=== PATIENT | female | born 1990 | race African-American/Black ===

== ENCOUNTER → 2016-12-03 | Outpatient (CLI) | payer OTHER ==
[~2016-12-03] MED LIST: AUGMENTIN PO
--- NOTE | ~2016-12-03 | MR103 ---
[facility]. [facility] A Service of [facility] & [facility] RADIOLOGY TEXT RESULTS PATIENT: LAI LOCATION: [facility] : 92 UNIT #: [id number] AGE: [address]: Fermín Granger MD SEX: F ORDER DR: [id number] [facility] [address] [place], [place] [address] [id number] O MR#: [id number] Acc #: [id number] NAME: October : 1990 SEX: F STUDY DATE/TIME: 12/03/2016 20:04 UNIT: [facility] ROOM: STUDY DESCRIPTION: MR Knee Wo Contrast Lt Attending Physician: Fermín Granger M.D. Referring Physician: Fermín Granger M.D. Ordering Physician: Fermín Granger M.D. Primary Care Physician: No Primary Care Physician MRI CENTER REPORT This report is preliminary unless electronic signature is present. EXAM MRI left knee 12/03/2016 COMPARISON No correlative studies. HISTORY Order states lateral meniscus tear. History sheet states left knee pain since August 2015. Pain on both sides of anterior knee. Painful flexion. Painful going up stairs. Pain during weather changes. No surgery. FINDINGS There is a mild joint effusion without a popliteal cyst. There is mild patella kristie without subluxation, tilt, or patellofemoral chondromalacia. There is, however, marked inflammation in the infrapatellar fat pad eccentric superolaterally. In this location, fat pad impingement is suggested. This is most commonly seen as sequela of patellofemoral malalignment/maltracking. The quadriceps and patellar tendons are intact. Cruciate ligaments are normal. Menisci, collateral ligaments, and popliteus tendon are intact. Articular cartilage and medial lateral compartments is normal. There is no marrow lesion, fracture, or loose body. IMPRESSION 1. Patella kristie without subluxation, tilt, or chondromalacia. 2. Marked inflammation in the superolateral aspect of the infrapatellar fat pad is most commonly seen in the setting of patellofemoral STS. [facility] A Service of [facility] & [facility] RADIOLOGY TEXT RESULTS PATIENT: LAI LOCATION: [facility] : [birth year] UNIT #: [id number] AGE: [address]: Fermín Granger MD SEX: F ORDER DR: malalignment/maltracking with fat pad impingement. Correlate clinically. 3. No meniscus tear. 4. Small effusion. Dictated by... Bree Catherine M.D. THIS IS AN ELECTRONICALLY VERIFIED REPORT Bree Catherine M.D. at 12/04/2016 11:31 AM HELEN/juana TD: 12/04/2016 10:14 JOB #: [id number] MRI CENTER REPORT Page 1 of 1 COPY
== END | disposition home or self-care (01) ==
LOC: CMRI 18:26
DX: S83.252A Bucket-handle tear of lateral meniscus, current injury, left knee, initial encounter (principal); M17.12 Unilateral primary osteoarthritis, left knee; M25.462 Effusion, left knee
CPT/HCPCS: 73721